=== PATIENT | female | born 1965 | race Caucasian/White ===

== ENCOUNTER → 2021-04-23 | Outpatient (CLI) | payer OTHER ==
--- NOTE | 2021-04-23 13:22 | CARD ---
MR#: [id number] Date of Study: 04/23/2021 Ordering Physician: DOV SNYDER, Referring Physician: DOV SNYDER, Tech: Marianne Deleon [facility] APPROVED REPORT EXAM: Two-dimensional and M-mode echocardiogram with Doppler and color Doppler. Other Information Quality : Average Rhythm : LBBB INDICATION Abnormal ECG 2D DIMENSIONS RVDd4.3 (2.9-3.5cm)Left Atrium(2D)4.2 (1.6-4.0cm) IVSd0.9 (0.7-1.1cm)Aortic Root(2D)3.3 (2.0-3.7cm) LVDd4.9 (3.9-5.9cm)LVOT Diameter2.4 (1.8-2.4cm) PWd1.1 (0.7-1.1cm)LVDs2.8 (2.5-4.0cm) FS (%) 42.1 %SV82.2 ml LVEF(%)73.0 (>50%) Aortic Valve AoV Peak Jean.137.0cm/sAoV VTI32.5cm AO Peak GR.7.5mmHgLVOT Peak Jean.123.7cm/s AO Mean GR.3mmHgAVA (VMAX)4.20cm2 Mitral Valve MV E Jxcgioum56.2cm/sMV DECEL [id number] MV A Uxbwttto68.0cm/sE/A Ratio1.4 Tricuspid Valve TR P. Ivubbsbj925pr/sTR Peak Gr.33mmHg LEFT VENTRICLE The left ventricle is normal size. There is normal left ventricular wall thickness. The left ventricu lar systolic function is normal and the ejection fraction is within normal range. Estimated ejection fraction 60%. There is normal LV segmental wall motion. The left ventricular diastolic function and f illing is normal for age. RIGHT VENTRICLE The right ventricle is normal size. There is normal right ventricular wall thickness. The right ventr icular systolic function is normal. ATRIA The left atrium size is normal. The right atrium size is normal. The interatrial septum is intact wit h no evidence for an atrial septal defect or patent foramen ovale as noted on 2-D or Doppler imaging. AORTIC VALVE The aortic valve is normal in structure and function. Doppler and Color Flow revealed no significant aortic regurgitation. There is no significant aortic valvular stenosis. MITRAL VALVE The mitral valve is normal in structure and function. There is no evidence of mitral valve prolapse. There is no mitral valve stenosis. Doppler and Color-flow revealed mild mitral regurgitation. TRICUSPID VALVE The tricuspid valve is normal in structure and function. Doppler and Color Flow revealed mild tricusp id regurgitation. Estimated PAP 28 mmHg. There is no tricuspid valve stenosis. PULMONIC VALVE Doppler and Color Flow revealed no pulmonic valvular regurgitation. There is no pulmonic valvular piotr nosis. GREAT VESSELS The aortic root is normal in size. The ascending aorta is normal in size. The IVC is normal in size a nd collapses >50% with inspiration. PERICARDIAL EFFUSION There is no evidence of significant pericardial effusion. Critical Notification Critical Value: No <Conclusion> The left ventricular systolic function is normal and the ejection fraction is within normal range. E stimated ejection fraction 60%. There is normal LV segmental wall motion. Doppler and Color-flow revealed mild mitral regurgitation. Signed by : Dov Snyder, Electronically Approved : 04/23/2021 13:22:20
== END ==
LOC: ECHO 12:22
PROVIDERS: ATTEND Internal Medicine Cardiovascular Disease
DX: I08.1 Rheumatic disorders of both mitral and tricuspid valves (principal); I44.7 Left bundle-branch block, unspecified
CPT/HCPCS: 93306; C8929